=== PATIENT | female | born 1985 | race Asian ===

== ENCOUNTER 2017-09-05 09:40 | Emergency (ER) | payer SELFPAY ==
[~2017-09-05] VITALS: Ht 165.1 cm; Wt 55.3 kg
[2017-09-05 09:45] VITALS: BP_SYST 105
[2017-09-05] MEDS ORDERED: DEXAMETHASONE SOD PHOSPHATE 10 MG/ML VIAL IM ONE (12:15)
[2017-09-05 12:29] VITALS: BP_SYST 102
== END 2017-09-05 12:29 | disposition home or self-care (01) ==
LOC: SED 09:40
DX: J06.9 Acute upper respiratory infection, unspecified (principal); Z88.0 Allergy status to penicillin; Z88.1 Allergy status to other antibiotic agents
CPT/HCPCS: 36415; 71020; 81025; 86403; 87081; 96372; 99285; J1100